=== PATIENT | male | born 1950 | race Caucasian/White ===

== ENCOUNTER 2025-01-25 03:53 | Emergency (ER) | payer OTHER ==
[2025-01-25] MEDS ORDERED: NA CHLORIDE 0.9% 1,000 ML ONE (04:09)
[2025-01-25] MEDS ORDERED: ONDANSETRON 4 MG/2 ML VIAL ONE (04:09)
[2025-01-25] MEDS ORDERED: MORPHINE 4 MG/ML SYR ONE (04:14)
[2025-01-25 04:34] LABS: Absolute Eosinophils 0.2 K/uL (0-0.5); Absolute Lymphocytes (CBC) 1.2 K/uL (0.7-4.9); Absolute Monocytes 0.5 K/uL (0.1-1.3); Absolute Neutrophil 3.9 K/uL (1.8-8.0); Basophils % 0.5 % (0-1.3); Eosinophils % 3.6 % (0-4.4); Hemoglobin 13.4 g/dL (13.6-17.9); Lymphocytes % 20.4 % (15.3-44.8); MCH 35.7 pg (27.0-35.0); MCHC 35.3 g/dL (32.0-36.0); MCV 101.2 fL (80-100); MPV 8.2 fL (7.6-11.3); Monocytes % 7.9 % (3.3-12.3); Neutrophils % 67.6 % (41.7-73.7); Platelets 119 thou/uL (152-406); RBC Red Blood Cell Count 3.75 M/uL (4.33-5.43); Red Cell Distribution Width 13.8 % (12.1-15.2)
[2025-01-25 05:10] LABS: Albumin 3.8 g/dL (3.4-5.0); Albumin/Globulin Ratio 1.1 (1.1-1.8); Anion Gap 9.2 mEq/L (5.0-15.0); Bilirubin Total 0.5 mg/dL (0.2-1.0); Globulin 3.4 g/dL (2.3-3.5); Protein, Total 7.2 g/dL (6.4-8.2)
[2025-01-25 05:11] LABS: Potassium 4.2 mEq/L (3.5-5.1)
[2025-01-25 06:09] LABS: Urine Bilirubin NEGATIVE (Negative); Urine Blood Negative (Negative); Urine Clarity Clear (Clear); Urine Color Light-Yellow (Yellow); Urine Glucose NEGATIVE (Negative); Urine Ketones NEGATIVE (Negative); Urine Microscopic Reflex YN NO UMIC; Urine Nitrite NEGATIVE (Negative); Urine Protein NEGATIVE (Negative); Urine Urobilinogen Normal (Normal)
--- NOTE | 2025-01-25 06:32 | RAD REPORT ---
EXAMINATION: Abdomen Pelvis W Contrast CLINICAL INDICATION: Male, 74 years old.ABD PAIN TECHNIQUE: CT abdomen and pelvis was performed, after the administration of IV contrast, as per [facility] protocol. Axial, sagittal and coronal reconstructions were obtained. One or more of the following dose reduction techniques were used: Automated exposure control, adjustment of the mA and/o r kV according to patient size, and/or iterative reconstruction. Unless otherwise specified, incidental findings do not require dedicated imaging follow-up. [id number]. COMPARISON: No prior exam. FINDINGS: LOWER CHEST: No acute process identified.No significant pericardial effusion. Mild coronary artery ca lcifications.Mild circumferential thickening of the distal esophagus which could reflect esophagitis. UPPER GI: No significant abnormality. LIVER: No significant focal abnormality. GALLBLADDER/BILE DUCTS: No biliary ductal dilatation.? PANCREAS: No mass, ductal dilation, or gabby-pancreatic fluid. SPLEEN: Unremarkable. ADRENALS: No adrenal masses. KIDNEYS AND URETERS: No hydronephrosis.No suspicious renal mass.Nonobstructing renal calculi present. No ureteral calculi. ABDOMINAL AORTA AND OTHER VESSELS: Moderate atherosclerotic changes without aortic aneurysm. PERITONEUM: Small volume of free fluid in the right lower quadrant. LYMPH NODES: No pathologic lymphadenopathy. ABDOMINAL WALL: Small fat containing umbilical hernia. SMALL BOWEL/COLON: Small bowel has normal course and caliber. No colonic wall thickening or pericolon ic inflammatory changes.Normal appendix. URINARY BLADDER: Underdistended but grossly unremarkable. REPRODUCTIVE ORGANS: Right hydrocele MUSCULOSKELETAL: Multilevel degenerative changes in the spine. No acute fracture. ADDITIONAL FINDINGS: None. IMPRESSION: Abnormal but nonspecific free fluid in the right lower quadrant. The appendix is normal. Nonobstructi ng renal calculi Other incidental findings as noted above.
--- NOTE | 2025-01-25 06:46 | EDPHYS ---
Physician Documentation [facility] Name: Avi Weathers Age: 74 yrs Sex: Male : 1950 Arrival Date: 01/25/2025 Time: 03:53 Bed 20 Private MD: ED Physician Pollo Deng HPI: 01/25 04:08 This 74 yrs old Male presents to ER via Unassigned with complaints of sp4 Abdominal Pain. 01/26 04:06 74-year-old male presents with acute onset of moderate to severe abdominal pain. sp4 Historical: - Allergies: 01/25 04:12 No Known Allergies; ha1 - PMHx: 04:12 Hypertensive disorder; ha1 - PSHx: 04:12 Cholecystectomy; ha1 - Immunization history:: Adult Immunizations. - Infectious Disease History:: Denies. - Social history:: Smoking status: Patient denies any tobacco usage or history of. - Family history:: not pertinent. ROS: 01/26 04:06 Constitutional: Negative for fever, chills, and weight loss, positive for diffuse sp4 abdominal pain All other systems are negative, Exam: 04:06 Constitutional: This is a well developed, well nourished patient who is awake, alert, sp4 and in no acute distress. Head/Face: Normocephalic, atraumatic. Eyes: Pupils equal round and reactive to light, extra-ocular motions intact. Lids and lashes normal. Conjunctiva and sclera are not injected. Cornea within normal limits. Periorbital areas with no swelling, redness, or edema. ENT: Nares patent. No nasal discharge, no septal abnormalities noted. Tympanic membranes are normal and external auditory canals are clear. Oropharynx with no redness, swelling, or masses, exudates, or evidence of obstruction, uvula midline. Mucous membranes moist. Neck: Trachea midline, no thyromegaly or masses palpated, and no cervical lymphadenopathy. Supple, full range of motion without nuchal rigidity, or vertebral point tenderness. Chest/axilla: Normal chest wall appearance and motion. Nontender with no deformity. No lesions are appreciated. Cardiovascular: Regular rate and rhythm with a normal S1 and S2. No gallops, murmurs, or rubs. Normal PMI, no JVD. No pulse deficits. Respiratory: Lungs have equal breath sounds bilaterally, clear to auscultation and percussion. No rales, rhonchi or wheezes noted. No increased work of breathing, no retractions or nasal flaring. Abdomen/GI: Soft, with normal bowel sounds. No distension or tympany. No guarding or rebound. Positive for diffuse abdominal discomfort to palpation without rebound tenderness Back: No spinal tenderness. No costovertebral tenderness. Skin: Warm, dry with normal turgor. Normal color with no rashes, no lesions, and no evidence of cellulitis. MS/ Extremity: Pulses equal, no cyanosis. Neurovascular intact. Full, normal range of motion. Neuro: Awake and alert, GCS 15, oriented to person, place, time, and situation. Cranial nerves II-XII grossly intact. Motor strength 5/5 in all extremities. Sensory grossly intact. Psych: Awake, alert, with orientation to person, place and time. Behavior, mood, and affect are within normal limits Vital Signs: 01/25 04:12 BP 174 / 82; Pulse 76; Resp 18 S; Temp 98.1; Pulse Ox 98% on R/A; Weight 79.38 kg; ha1 Height 5 ft. 5 in. ; 05:16 BP 152 / 80; Pulse 66; Resp 18; Pulse Ox 98% ; rg5 06:00 BP 149 / 82; Pulse 66; Resp 18; Pulse Ox 95% ; rg5 04:12 Body Mass Index 29.12 (79.38 kg, 165.1 cm) ha1 Jaime Coma Score: 01/26 04:06 Eye Response: spontaneous(4). Motor Response: obeys commands(6). Verbal Response: sp4 oriented(5). Total: 15. MDM: 01/25 05:32 Medical Screening Exam initiated sp4 06:43 ED course: EXAMINATION: Abdomen Pelvis W Contrast CLINICAL INDICATION: Male, 74 years sp4 old.ABD PAIN TECHNIQUE: CT abdomen and pelvis was performed, after the administration of IV contrast, as per department protocol. Axial, sagittal and coronal reconstructions were obtained. One or more of the following dose reduction techniques were used: Automated exposure control, adjustment of the mA and/or kV according to patient size, and/or iterative reconstruction. Unless otherwise specified, incidental findings do not require dedicated imaging follow-up. [id number]. COMPARISON: No prior exam. FINDINGS: LOWER CHEST: No acute process identified.No significant pericardial effusion. Mild coronary artery calcifications.Mild circumferential thickening of the distal esophagus which could reflect esophagitis. UPPER GI: No significant abnormality. LIVER: No significant focal abnormality. GALLBLADDER/BILE DUCTS: No biliary ductal dilatation.? PANCREAS: No mass, ductal dilation, or gabby-pancreatic fluid. SPLEEN: Unremarkable. ADRENALS: No adrenal masses. KIDNEYS AND URETERS: No hydronephrosis.No suspicious renal mass.Nonobstructing renal calculi present.No ureteral calculi. ABDOMINAL AORTA AND OTHER VESSELS: Moderate atherosclerotic changes without aortic aneurysm. PERITONEUM: Small volume of free fluid in the right lower quadrant. LYMPH NODES: No pathologic lymphadenopathy. ABDOMINAL WALL: Small fat containing umbilical hernia. SMALL BOWEL/COLON: Small bowel has normal course and caliber. No colonic wall thickening or pericolonic inflammatory changes.Normal appendix. URINARYBLADDER: Underdistended but grossly unremarkable. REPRODUCTIVE ORGANS: Right hydrocele MUSCULOSKELETAL: Multilevel degenerative changes in the spine. No acute fracture. ADDITIONAL FINDINGS: None. IMPRESSION: Abnormal but nonspecific free fluid in the right lower quadrant. The appendix is normal. Nonobstructing renal calculi . 01/26 04:08 Differential diagnosis: bowel obstruction, cholecystitis, Cholelithiasis, sp4 diverticulitis, gastritis, GI Bleed, Hepatitis. Data reviewed: vital signs, nurses notes, lab test result(s), radiologic studies, CT scan. Consideration of Admission/Observation Escalation of care including admission/observation considered. ED course: CT today does not suggest acute intra-abdominal emergency. Patient stable for discharge home likely acute viral gastroenteritis. 01/25 04:09 Order name: CBC with Diff; Complete Time: 05:58 sp4 01/25 04:09 Order name: CMP; Complete Time: 05:58 sp4 01/25 04:09 Order name: Lipase; Complete Time: 05:58 4 01/25 04:09 Order name: UA Rfx Bonifacio Cult if indicated; Complete Time: 06:36 sp4 01/25 04:09 Order name: CT Abd/Pelvis - IV Contrast Only sp4 01/25 04:09 Order name: IV Saline Lock; Complete Time: 04:30 sp4 01/25 04:09 Order name: Labs collected and sent; Complete Time: 04:30 4 Administered Medications: 01/25 04:28 Drug: Ondansetron IVP 4 mg IVP once; over 2 minutes Route: IVP; Site: right forearm; ha1 05:20 Follow up: Response: No adverse reaction; Pain is decreased rg5 04:29 Drug: morphine IVP or IV 4 mg IVP once over 4 mins Route: IVP; Infused Over: 4 mins; ha1 Site: right forearm; 05:19 Follow up: Response: No adverse reaction; Pain is decreased rg5 04:30 Drug: NS 0.9% IV 1000 ml IV at 1 bolus Per protocol; to be given as a bolus over 60 ha1 minutes Route: IV; Rate: 1 bolus; Site: right forearm; 06:00 Follow up: Response: No adverse reaction; IV Status: Completed infusion ha1 Disposition: 01/26 04:09 Chart complete. sp4 Disposition Summary: 01/25/25 06:45 Discharge Ordered Notes: Location: Home sp4 Problem: new sp4 Symptoms: have improved sp4 Condition: Stable sp4 Diagnosis - Acute viral gastroenteritis, acute diffuse abdominal pain sp4 Followup: sp4 - With: Private Physician - When: 7 - 10 days - Reason: Recheck today's complaints Discharge Instructions: - Discharge Summary Sheet sp4 - Viral Gastroenteritis, Adult, [id number] sp4 Forms: - Patient Portal Instructions sp4 Prescriptions: - Ibuprofen 800 mg Oral Tablet - take 1 tablet ORAL route every 8 hours As needed take with food; 30 tablet; sp4 Refills: 0, Product Selection Permitted - dicyclomine 20 mg Oral tablet - take 2 tablets ORAL route 3 times per day PRN pain; 30 tablet; Refills: 0, sp4 Product Selection Permitted - ondansetron 8 mg Oral Tablet,disintegrating - take 1 tablet ORAL route every 8 hours PRN nausea; 30 tablet; Refills: 0, sp4 Product Selection Permitted Signatures: Dispatcher [employer] EDMS Lisandra Love RN RN ha1 Pollo Deng MD MD sp4 Renaldo Moy RN rg5 Corrections: (The following items were deleted from the chart) 01/25 04:09 04:09 CBC+H.LAB.BRZ ordered. EDMS EDMS 04:09 04:09 COMPREHENSIVE METABOLIC PANEL+C.LAB.BRZ ordered. EDMS EDMS 04:09 04:09 LIPASE+C.LAB.BRZ ordered. EDMS EDMS
--- NOTE | 2025-01-25 06:46 | ER ---
Nurse's Notes [facility] Name: Avi Weathers Age: 74 yrs Sex: Male : 1950 Arrival Date: 01/25/2025 Time: 03:53 Bed 20 Private MD: Diagnosis: Acute viral gastroenteritis, acute diffuse abdominal pain Presentation: 01/25 04:12 Chief complaint: Patient states: SUDDEN ONSET OF ABDOMINAL PAIN THAT STARTED TWO HOURS ha1 AGO. 04:12 Coronavirus screen: Client denies travel out of the [place] in the last 14 days. Ebola ha1 Screen: No symptoms or risks identified at this time. Initial Sepsis Screen: Does the patient meet any 2 criteria? No. Patient's initial sepsis screen is negative. Does the patient have a suspected source of infection? No. Patient's initial sepsis screen is negative. Risk Assessment: Do you want to hurt yourself or someone else? Patient reports no desire to harm self or others. Onset of symptoms was January 25, 2025. 04:12 Method Of Arrival: Ambulatory ha1 04:12 Acuity: ANYA 3 ha1 Triage Assessment: 04:12 General: Appears uncomfortable, Behavior is cooperative. Pain: Complains of pain in ha1 abdomen Pain currently is 7 out of 10 on a pain scale. Quality of pain is described as crampy. Neuro: Level of Consciousness is awake, alert, confused, Oriented to person, place, time, situation. Cardiovascular: Capillary refill < 3 seconds Patient's skin is warm and dry. Respiratory: Airway is patent Respiratory effort is even, unlabored, Respiratory pattern is regular, symmetrical. GI: Abdomen is round non-distended, Reports lower abdominal pain, upper abdominal pain. Derm: Skin is pink, warm \T\ dry. Historical: - Allergies: 04:12 No Known Allergies; ha1 - PMHx: 04:12 Hypertensive disorder; ha1 - PSHx: 04:12 Cholecystectomy; ha1 - Immunization history:: Adult Immunizations. - Infectious Disease History:: Denies. - Social history:: Smoking status: Patient denies any tobacco usage or history of. - Family history:: not pertinent. Screenin:55 [facility] ED Fall Risk Assessment (Adult) History of falling in the last 3 months, ha1 including since admission No falls in past 3 months (0 pts) Confusion or Disorientation No (0 pts) Intoxicated or Sedated No (0 pts) Impaired Gait No (0 pts) Mobility Assist Device Used No (0 pt) Altered Elimination No (0 pt) Score/Fall Risk Level 0 - 2 = Low Risk Oriented to surroundings, Maintained a safe environment, Educated pt \T\ family on fall prevention, incl call for assistance when getting out of bed, Hourly rounding (assess needs \T\ fall precautionary measures) done. Abuse screen: Denies threats or abuse. Denies injuries from another. Nutritional screening: No deficits noted. Tuberculosis screening: No symptoms or risk factors identified. Assessment: 04:34 Reassessment: SEE TRIAGE ASSESSMENT. ha1 05:14 Reassessment: Patient and/or family updated on plan of care and expected duration. Pain rg5 level reassessed. Patient is alert, oriented x 3, equal unlabored respirations, skin warm/dry/pink. Patient states symptoms have improved. 06:00 Reassessment: Patient and/or family updated on plan of care and expected duration. Pain ha1 level reassessed. Patient is alert, oriented x 3, equal unlabored respirations, skin warm/dry/pink. pain 3/10 Patient states feeling better. Patient states symptoms have improved. Vital Signs: 04:12 BP 174 / 82; Pulse 76; Resp 18 S; Temp 98.1; Pulse Ox 98% on R/A; Weight 79.38 kg; ha1 Height 5 ft. 5 in. ; 05:16 BP 152 / 80; Pulse 66; Resp 18; Pulse Ox 98% ; rg5 06:00 BP 149 / 82; Pulse 66; Resp 18; Pulse Ox 95% ; rg5 04:12 Body Mass Index 29.12 (79.38 kg, 165.1 cm) 1 Jaime Coma Score: 01/26 04:06 Eye Response: spontaneous(4). Motor Response: obeys commands(6). Verbal Response: sp4 oriented(5). Total: 15. ED Course: 01/25 03:59 Patient arrived in ED. [email or web address] 04:08 Pollo Deng MD is Attending Physician. sp4 04:12 Patient has correct armband on for positive identification. Bed in low position. Call ha1 light in reach. Side rails up X 1. 04:12 Provided Education on: PLAN OF CARE AND MEDICATION ADMINISTRATION . ha1 04:13 Renaldo Moy, RN is Primary Nurse. rg5 04:30 CBC with Diff Sent. ha1 04:30 CMP Sent. ha1 04:30 Lipase Sent. ha1 04:32 Triage completed. ha1 04:35 Inserted saline lock: 22 gauge in right forearm, using aseptic technique. Blood oe collected. Flushed with 10 mL NS. 06:00 CT Abd/Pelvis - IV Contrast Only In Process Unspecified. EDMS 06:06 UA Rfx Bonifacio Cult if indicated Sent. oe 06:49 IV discontinued, bleeding controlled, No redness/swelling at site. Pressure dressing rg5 applied. 07:16 No provider procedures requiring assistance completed. ha1 Administered Medications: 04:28 Drug: Ondansetron IVP 4 mg IVP once; over 2 minutes Route: IVP; Site: right forearm; ha1 05:20 Follow up: Response: No adverse reaction; Pain is decreased rg5 04:29 Drug: morphine IVP or IV 4 mg IVP once over 4 mins Route: IVP; Infused Over: 4 mins; ha1 Site: right forearm; 05:19 Follow up: Response: No adverse reaction; Pain is decreased rg5 04:30 Drug: NS 0.9% IV 1000 ml IV at 1 bolus Per protocol; to be given as a bolus over 60 ha1 minutes Route: IV; Rate: 1 bolus; Site: right forearm; 06:00 Follow up: Response: No adverse reaction; IV Status: Completed infusion ha1 Medication: 07:16 VIS not applicable for this client. ha1 Outcome: 06:45 Discharge ordered by . balaji 07:16 Discharged to home ambulatory, with family, ha1 07:16 Condition: stable 07:16 Discharge instructions given to patient, family, Instructed on discharge instructions, follow up and referral plans. no driving heavy equipment, Demonstrated understanding of instructions, follow-up care, medications, Prescriptions given X 3, 07:17 Patient left the ED. ha1 Signatures: Dispatcher [employer] EDMS Kong Mejia Jennifer [email or web address] Lisandra Love, RN RN ha1 Pollo Deng MD MD sp4 Gallardo, Rommel, RN RN rg5
[2025-01-25 07:21] VITALS: TEMP 98.1
[2025-01-25 07:25] VITALS: BP 149/82; O2SAT 95
== END 2025-01-25 07:17 | disposition home or self-care (01) ==
LOC: ER 03:53
DX: A08.4 Viral intestinal infection, unspecified (principal)
CPT/HCPCS: 96361; 85025; 36415; 81003; 83690; 80053; 74177; 96375; 96374; 99284; Q9967; J2405; J7030